=== PATIENT | female | born 1955 ===

== ENCOUNTER 2016-07-25 15:00 | Outpatient (RCR) | payer OTHER | END 2016-08-12 | disposition home or self-care (01) | LOC: PTY 15:00 | DX: M54.5 Low back pain (principal); Z96.643 Presence of artificial hip joint, bilateral; M19.90 Unspecified osteoarthritis, unspecified site ==

== ENCOUNTER 2016-08-26 13:00 | Outpatient (RCR) | payer OTHER | END 2016-09-12 | disposition home or self-care (01) | LOC: PTY 13:00 | DX: M54.5 Low back pain (principal) ==